=== PATIENT | female | born 1995 | race African-American/Black ===

== ENCOUNTER 2016-09-16 20:40 | Emergency (ER) | payer MEDICAID ==
[~2016-09-16] VITALS: Ht 172.7 cm; Wt 82.0 kg
[~2016-09-16 20:40] MED LIST: PROM25TA5 PO; birth control pill PO
[2016-09-16 20:44] VITALS: BP 121/75; PULSE 92; RESP 18; TEMP 98; O2SAT 98
[2016-09-16] MEDS ORDERED: SODIUM CHLOR 0.9% 1000 ML INJ 1,000 ML IV ONE (20:56)
--- NOTE | 2016-09-16 21:11 | PD ---
HPI Chief Complaint: Related Problem Time Seen by Provider: 20:54 Travel History International Travel<30 days: No Contact w/Intl Traveler<30days: No Traveled to known affect area: No History of Present Illness HPI The patient is a 21 year old female with one term vaginal delivery and one spontaneous miscarriage at 13 weeks gestation currently who presents to the [facility] emergency department with a history of right-sided abdominal pain and nausea and vomiting that began yesterday. She reports that she's had vomiting too many times to count yesterday. She reports that today she's had 4 episodes of vomiting. She denies having any diarrhea. Her last bowel movement was last night. She denies having any blood in her stool or black or tarry stools. She reports that she's had urinary urgency today and difficulty urinating. She denies having any pain with urination or frequency. 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 She reports that she was told that there is fluid on the baby's head or heart and she has been referred to [place] for specialty evaluation. The patient denies any recent fevers, cough, congestion, neck pain, chest pain, shortness of breath, diarrhea, or neurologic symptoms. LMP: May 2016 [facility] Past Medical History Narrative Medical The patient's past medical history is significant for none. Medical History: Denies Significant Hx Developmental Delay: No Diminished Hearing: No Headaches: No Immunizations Current: Yes ?: LMP: 05/2016 : 3 Para: 1 Miscarriage: 1 Past Surgical History Narrative Surgical The patient's past surgical history is reportedly none. Surgical History: No Previous Surgery Social History Alcohol Use: Yes (ocass.) Tobacco Use: No Substance Use: No Allergies-Medications (Allergen,Severity, Reaction): Coded Allergies: Amoxicillin (Verified Allergy, Severe, HIVES, 09/16/16) Penicillin (Verified Allergy, Severe, HIVES, 09/16/16) Reported Meds & Prescriptions Reported Meds & Active Scripts Active Zofran Odt (Ondansetron Odt) 4 Mg Tab 4 Mg SL Q6HR PRN Phenergan (Promethazine HCl) 25 Mg Tab 25 Mg PO Q6H PRN Reported [ control pill] 1 Tab PO HS Review of Systems Except as stated in HPI: all other systems reviewed are Neg General / Constitutional: No: Fever Eyes: No: Visual changes HENT: No: Headaches Cardiovascular: No: Chest Pain or Discomfort Respiratory: No: Shortness of Breath Gastrointestinal: Positive: Nausea, Vomiting, Abdominal Pain, No: Changes in Bowel Habits, Indigestion, Loss of Appetite Genitourinary: Positive: Urgency, Hesitancy, No: Dysuria Musculoskeletal: No: Pain Skin: No Rash Neurologic: No: Weakness Psychiatric: No: Depression Endocrine: No: Polydipsia Hematologic/Lymphatic: No: Easy Bruising Physical Exam Narrative General: The patient is a well-developed well-nourished female, tearful on examination, flat affect. Head and Neck exam: Head is normocephalic atraumatic. Eyes: EOMI, pupils are equal round and reactive to light. Nose: Midline septum with pink mucous membranes Mouth: Dentition unremarkable. Moist mucus membranes. Posterior oropharynx is not erythematous. No tonsillar hypertrophy. Uvula midline. Airway patent. Neck: No palpable lymphadenopathy. No nuchal rigidity. No thyromegaly. Cardiovascular: Regular rate and rhythm without murmurs, gallops, or rubs. Lungs: Clear to auscultation bilaterally. No wheezes, rhonchi, or rales. Abdomen: Soft, with tenderness on palpation along the right lateral mid section of the abdomen, no tenderness specifically over McBurney's point. No guarding, rebound , or rigidity. Negative Ruthven sign. Normal bowel sounds are audible. Extremities: No clubbing, cyanosis, or edema. 2+ pulses in all 4 extremities. No calf tenderness on palpation. Back: No spinous process tenderness to palpation. No costovertebral angle tenderness to palpation. Neurologic Exam: Grossly nonfocal. Skin Exam: No rash noted. Intact skin that is warm and dry. Gynecologic exam: The patient was placed in the dorsal lithotomy position. Her external genitalia were examined. She had no evidence of rash or lesions. The speculum was placed into her vagina and the cervix was identified. She had a yellow discharge noted. Cervix was noted to be friable. On Bimanual exam: she has no cervical motion tenderness. No adnexal tenderness or prominence noted on palpation. No uterine tenderness, however enlargement consistent with early is noted to palpation. Data Data Last Documented VS Vital Signs Date Time Temp Pulse Resp B/P Pulse Ox O2 Delivery O2 Flow Rate FiO2 09/16/16 23:57 90 16 128/78 100 09/16/16 20:44 98.0 Orders Beta Hcg (Quant/Titer) (09/16/16 20:56) Complete Blood Count With Diff (09/16/16 20:56) Comprehensive Metabolic Panel (09/16/16 20:56) Gc And Chlamydia Pcr (09/16/16 20:56) Complete Rh (09/16/16 20:56) Wet Prep Profile (09/16/16 20:56) Urinalysis - C+S If Indicated (09/16/16 20:56) Iv Access Insert/Monitor (09/16/16 20:56) Ecg Monitoring (09/16/16 20:56) Sodium Chlor 0.9% 1000 Ml Inj (Ns 1000 M (09/16/16 20:56) Ondansetron Inj (Zofran Inj) (09/16/16 21:30) Ed Poc Ultrasound (09/16/16 ) Ceftriaxone Inj (Rocephin Inj) (09/16/16 21:45) Azithromycin Powd Pack (Zithromax Powd P (09/16/16 21:45) Ceftriaxone Inj (Rocephin Inj) (09/16/16 22:03) Labs Laboratory Tests Test 09/16/16 09/16/16 09/16/16 21:10 21:20 22:30 White Blood Count 10.8 TH/MM3 Red Blood Count 4.85 MIL/MM3 Hemoglobin 12.2 GM/DL Hematocrit 35.3 % Mean Corpuscular Volume 72.8 FL Mean Corpuscular Hemoglobin 25.2 PG Mean Corpuscular Hemoglobin 34.7 % Concent Red Cell Distribution Width 16.8 % Platelet Count 336 TH/MM3 Mean Platelet Volume 8.0 FL Neutrophils (%) (Auto) 56.4 % Lymphocytes (%) (Auto) 33.0 % Monocytes (%) (Auto) 8.8 % Eosinophils (%) (Auto) 1.2 % Basophils (%) (Auto) 0.6 % Neutrophils # (Auto) 6.1 TH/MM3 Lymphocytes # (Auto) 3.5 TH/MM3 Monocytes # (Auto) 0.9 TH/MM3 Eosinophils # (Auto) 0.1 TH/MM3 Basophils # (Auto) 0.1 TH/MM3 CBC Comment DIFF FINAL Differential Comment Sodium Level 136 MEQ/L Potassium Level 3.7 MEQ/L Chloride Level 105 MEQ/L Carbon Dioxide Level 22.9 MEQ/L Anion Gap 8 MEQ/L Blood Urea Nitrogen 5 MG/DL Creatinine 0.64 MG/DL Estimat Glomerular Filtration 142 ML/MIN Rate Random Glucose 92 MG/DL Calcium Level 8.5 MG/DL Total Bilirubin 0.2 MG/DL Aspartate Amino Transf 11 U/L (AST/SGOT) Alanine Aminotransferase 8 U/L (ALT/SGPT) Alkaline Phosphatase 68 U/L Total Protein 7.3 GM/DL Albumin 2.9 GM/DL Human Chorionic Gonadotropin, [address] MIU/ML Quant Blood Type O POSITIVE Rho(D) Type POSITIVE Clue Cells (Wet Prep) NONE SEEN Vaginal Trichomonas (Wet Prep) NONE SEEN Vaginal Yeast (Wet Prep) NONE SEEN Chlamydia trachomatis DNA DETECTED (PCR) Neisseria gonorrhoeae DNA NOT DETECTED (PCR) Urine Color LIGHT-YELLOW Urine Turbidity CLEAR Urine pH 6.0 Urine Specific Mikana 1.008 Urine Protein NEG mg/dL Urine Glucose (UA) NEG mg/dL Urine Ketones NEG mg/dL Urine Occult Blood NEG Urine Nitrite NEG Urine Bilirubin NEG Urine Urobilinogen LESS THAN 2.0 MG/DL Urine Leukocyte Esterase MOD Urine RBC LESS THAN 1 /hpf Urine WBC LESS THAN 1 /hpf Urine Squamous Epithelial 1 /hpf Cells Urine Renal Epithelial Cells <1 /hpf Urine Mucus FEW /lpf Microscopic Urinalysis Comment CULT NOT INDICATED MDM Medical Decision Making Medical Screen Exam Complete: Yes Emergency Medical Condition: Yes Medical Record Reviewed: Yes Interpretation(s) Laboratory Tests Test 09/16/16 09/16/16 09/16/16 21:10 21:20 22:30 White Blood Count 10.8 TH/MM3 Red Blood Count 4.85 MIL/MM3 Hemoglobin 12.2 GM/DL Hematocrit 35.3 % Mean Corpuscular Volume 72.8 FL Mean Corpuscular Hemoglobin 25.2 PG Mean Corpuscular Hemoglobin 34.7 % Concent Red Cell Distribution Width 16.8 % Platelet Count 336 TH/MM3 Mean Platelet Volume 8.0 FL Neutrophils (%) (Auto) 56.4 % Lymphocytes (%) (Auto) 33.0 % Monocytes (%) (Auto) 8.8 % Eosinophils (%) (Auto) 1.2 % Basophils (%) (Auto) 0.6 % Neutrophils # (Auto) 6.1 TH/MM3 Lymphocytes # (Auto) 3.5 TH/MM3 Monocytes # (Auto) 0.9 TH/MM3 Eosinophils # (Auto) 0.1 TH/MM3 Basophils # (Auto) 0.1 TH/MM3 CBC Comment DIFF FINAL Differential Comment Sodium Level 136 MEQ/L Potassium Level 3.7 MEQ/L Chloride Level 105 MEQ/L Carbon Dioxide Level 22.9 MEQ/L Anion Gap 8 MEQ/L Blood Urea Nitrogen 5 MG/DL Creatinine 0.64 MG/DL Estimat Glomerular Filtration 142 ML/MIN Rate Random Glucose 92 MG/DL Calcium Level 8.5 MG/DL Total Bilirubin 0.2 MG/DL Aspartate Amino Transf 11 U/L (AST/SGOT) Alanine Aminotransferase 8 U/L (ALT/SGPT) Alkaline Phosphatase 68 U/L Total Protein 7.3 GM/DL Albumin 2.9 GM/DL Human Chorionic Gonadotropin, 695[address] MIU/ML Quant Blood Type O POSITIVE Rho(D) Type POSITIVE Clue Cells (Wet Prep) NONE SEEN Vaginal Trichomonas (Wet Prep) NONE SEEN Vaginal Yeast (Wet Prep) NONE SEEN Chlamydia trachomatis DNA DETECTED (PCR) Neisseria gonorrhoeae DNA NOT DETECTED (PCR) Urine Color LIGHT-YELLOW Urine Turbidity CLEAR Urine pH 6.0 Urine Specific Mikana 1.008 Urine Protein NEG mg/dL Urine Glucose (UA) NEG mg/dL Urine Ketones NEG mg/dL Urine Occult Blood NEG Urine Nitrite NEG Urine Bilirubin NEG Urine Urobilinogen LESS THAN 2.0 MG/DL Urine Leukocyte Esterase MOD Urine RBC LESS THAN 1 /hpf Urine WBC LESS THAN 1 /hpf Urine Squamous Epithelial 1 /hpf Cells Urine Renal Epithelial Cells <1 /hpf Urine Mucus FEW /lpf Microscopic Urinalysis Comment CULT NOT INDICATED Differential Diagnosis Threatened miscarriage, versus pyelonephritis, versus kidney stone, versus round ligament pain, versus appendicitis Narrative Course During the course of the patients emergency department visit, the patients history, examination, and differential diagnosis were reviewed with the patient. The patient had IV access obtained and blood work sent for analysis. The patient was placed on a equipment monitor phototypesetting with oximetry and blood pressure monitoring. A pelvic examination will be done. A bedside ultrasound will be done by me. The patient was provided normal saline 1 L IV fluid bolus, Zofran 4 mg IV. A bedside ultrasound was done by me and confirmed heart activity. The patient was noted on pelvic examination to have cervicitis and was given Rocephin 250 IV, Zithromax 1 g by mouth. A wet prep and culture were sent. The patients laboratory studies were reviewed and remarkable for a white count of 10.8, hemoglobin 12.2, platelets 336 with 8.8 monocytes, CMP is remarkable for a BUN of 5, AST 11, ALT 8, albumin 2.9, on a dictated beta hCG is 76,789, urinalysis is unremarkable, wet prep is negative, blood type is O+. The patient's results were discussed with her, her questions were answered. The patient was instructed to take Tylenol as needed for discomfort. She reports that she does have an appointment scheduled with a specialist on Saturday and regarding her . The patient was instructed regarding the importance of follow-up. The patient was given a prescription for nausea medication. The patient was instructed regarding the importance of staying well hydrated by pushing fluids with an electrolyte rich solution such as Pedialyte or Gatorade. The patient is resting comfortably and feels better, is alert and in no distress. The patients results and examination findings were discussed with the patient. The repeat examination is unremarkable and benign. The history, exam, diagnostic testing, and current condition do not suggest any significant pathology to warrant further testing, continued ED treatment, admission, or surgical evaluation at this point. The vital signs have been stable. The patient does not have uncontrollable pain, intractable vomiting, or other significant symptoms. The patient's condition is stable and appropriate for discharge. The patient will pursue further outpatient evaluation with a primary care physician or other designated or consulting physician as indicated in the discharge instructions. The patient expressed understanding and was agreeable with this plan. Procedures Procedure Narrative Emergency Department Pelvic ultrasound was performed with patient consent. The curvilinear probe was used in the transverse and sagittal views within the suprapubic region revealing single intrauterine . heart rate was 169. Diagnosis Primary Impression: Cervicitis Additional Impression: Qualified Code: Z3A.13 - 13 weeks gestation of Referrals: [employer] 2 days Patient Instructions: Acute Nausea and Vomiting (ED), Cervicitis (ED), General Instructions Med/Other Pt SpecificInfo: Prescription(s) given Scripts Ondansetron Odt (Zofran Odt)4 Mg Tab4 Mg SL Q6HR PRN (Nausea/Vomiting) #7 TAB Ref 0 Prov:Rosy Lucero MD 09/16/16 Disposition: 01 DISCHARGE HOME Condition: Stable Rosy Lucero MD Sep 16, 2016 21:11
[2016-09-16 21:21] LABS: AUTOMATED NEUTROPHIL # 6.1 TH/MM3 (1.8-7.7); BASOPHIL # 0.1 TH/MM3 (0-0.2); BASOPHIL % 0.6 % (0.0-2.0); EOSINOPHIL # 0.1 TH/MM3 (0-0.4); EOSINOPHIL % 1.2 % (0.0-4.0); HEMATOCRIT 35.3 % (35.0-46.0); HEMO FLAGS DIFF FINAL; LYMPHOCYTE # 3.5 TH/MM3 (1.0-4.8); MEAN CELL VOLUME 72.8 FL (80.0-100.0); MEAN CORPUSCULAR HEMOGLOBIN 25.2 PG (27.0-34.0); MEAN CORPUSCULAR HGB CONC 34.7 % (32.0-36.0); MONO % 8.8 % (0.0-8.0); NEUT % 56.4 % (16.0-70.0); PLATELET COUNT 336 TH/MM3 (150-450); RED BLOOD COUNT 4.85 MIL/MM3 (4.00-5.30); RED CELL DISTRIBUTION WIDTH 16.8 % (11.6-17.2); WHITE BLOOD COUNT 10.8 TH/MM3 (4.0-11.0)
[2016-09-16] MEDS ORDERED: ONDANSETRON HCL 4 MG/2 ML VIAL IV ONE (21:30)
[2016-09-16 21:43] LABS: ANION GAP 8 MEQ/L (5-15); AST (GOT) 11 U/L (15-37); BICARBONATE 22.9 MEQ/L (21.0-32.0); BLOOD UREA NITROGEN 5 MG/DL (7-18); CHLORIDE 105 MEQ/L (98-107); GLOMERULAR FILTRATION RATE 142 ML/MIN (>89); POTASSIUM 3.7 MEQ/L (3.5-5.1); SODIUM (NA) 136 MEQ/L (136-145)
[2016-09-16] MEDS ORDERED: AZITHROMYCIN PWD FOR SUSP 1 GM PACKET PO ONE (21:45)
[2016-09-16] MEDS ORDERED: cefTRIAXone INJ 250 MG in SODIUM CHLORIDE 0.9% INJ 25 ML IV ONE (21:45)
[2016-09-16 22:00] LABS: ALKALINE PHOSPHATASE 68 U/L (45-117); ALT (GPT) 8 U/L (10-53); BETA HCG QUANT 76789 MIU/ML (0-5); TOTAL BILIRUBIN ADULT 0.2 MG/DL (0.2-1.0)
[2016-09-16] MEDS ORDERED: cefTRIAXone INJ 250 MG in SODIUM CHLORIDE 0.9% INJ 100 ML IV ONE (22:03)
[2016-09-16 23:08] LABS: BLOOD, URINE NEG (NEG); GLUCOSE,URINE NEG (NEG); KETONE, URINE NEG (NEG); MUCUS URINE FEW /lpf (OCC); NITRITE,URINE NEG (NEG); RENAL EPITHELIAL CELLS <1 /hpf; SQUAMOUS EPITHELIAL CELL URINE 1 /hpf (0-5); URINE COLOR LIGHT-YELLOW (YELLW/STRAW)
[2016-09-16 23:11] LABS: COMMENT (UR) CULT NOT INDICATED; CULTURE IF INDICATED CULT NOT INDICATED
[2016-09-16] MEDS ORDERED: ZOFR4TAB3 SL (23:48)
[2016-09-16 23:57] VITALS: BP 128/78
[2016-09-17 00:43] LABS: CHLAMYDIA PCR DETECTED (NOT DETECT); NEISSERIA PCR NOT DETECTED (NOT DETECT)
== END 2016-09-17 | disposition home or self-care (01) ==
LOC: NEPE 20:40
DX: O26.91 Pregnancy related conditions, unspecified, first trimester (principal); N72 Inflammatory disease of cervix uteri; R39.15 Urgency of urination; R30.0 Dysuria; Z3A.13 13 weeks gestation of pregnancy
CPT/HCPCS: 80053; 81001; 84702; 85025; 86901; 87210; 87491; 87591; 96361; 96365; 96375; 99284; J0696; J2405; J7030

== ENCOUNTER → 2016-10-16 | Outpatient (CLI) | payer MEDICAID ==
[~2016-10-16] MED LIST changes: +ZOFR4TAB3 SL
== END ==
LOC: HPND 08:33
PROVIDERS: ATTEND Obstetrics & Gynecology
DX: O36.22X0 Maternal care for hydrops fetalis, second trimester, not applicable or unspecified (principal); O35.8XX0 Maternal care for other (suspected) fetal abnormality and damage, not applicable or unspecified
CPT/HCPCS: 76815

== ENCOUNTER 2016-10-29 01:07 | Emergency (ER) | payer MEDICAID ==
[~2016-10-29] VITALS: Ht 172.7 cm; Wt 82.0 kg
[2016-10-29 01:09] VITALS: BP 134/77; PULSE 82; RESP 18; TEMP 98.3; O2SAT 100
== END 2016-10-29 01:40 | disposition left against medical advice (07) ==
LOC: NED 01:07
DX: R51 Headache (principal)
CPT/HCPCS: 99281

== ENCOUNTER 2017-06-20 12:14 | Emergency (ER) | payer MEDICAID ==
[2017-06-20 12:35] VITALS: PULSE 102
[2017-06-20 12:40] VITALS: PULSE 150; PULSE 93
[2017-06-20] MEDS ORDERED: LACTATED RINGER'S 1000 ML INJ 1,000 ML IV SCH (12:49)
--- NOTE | 2017-06-20 13:03 | PD ---
HPI Chief Complaint Dizziness pelvic pain Date Seen: Jun 20, 2017 Time Seen: 12:55 Travel History International Travel<30 Days: No Contact w/Intl Traveler<30Days: No Known Affected Area: No History of Present Illness HPI 21-year-old white female A1 at 29 weeks presents complaining of dizziness for a day and pelvic discomfort pains denies bleeding or leakage of fluid. Patient sees Dr. Ayoub in [facility] unregistered to our system. The heart rate tracing is reactive she is not rosemary at this time Weeks Gestation: 29 Para: 1 : 3 History Past Medical History Narrative Medical Positive sickle cell trait Obstetric History Obstetric History Patient's had one vaginal delivery in the past was normal at term, last baby had multiple anomalies the terminated at 18-20 weeks Social History Alcohol Use: No Tobacco Use: No Substance Abuse: No Allergies-Medications (Allergen,Severity, Reaction): Coded Allergies: amoxicillin (Unverified Allergy, Severe, HIVES, 03/12/17) penicillin G (Unverified Allergy, Severe, HIVES, 03/12/17) Home Meds Active Scripts Ondansetron Odt (Zofran Odt) 4 Mg Tab, 4 MG SL Q6HR Y for Nausea/Vomiting, #7 TAB 0 Refills Prov:Rosy Lucero MD 09/16/16 Promethazine (Phenergan) 25 Mg Tab, 25 MG PO Q6H Y for Nausea/Vomiting, #20 TAB 0 Refills Prov:Alexei Crowe MD 07/28/16 Reported Medications [ control pill] No Conflict Check, 1 TAB PO HS 06/14/16 Review of Systems General / Constitutional: No: Fever, Weight Gain, Chills, Other Eyes: No: Diploplia, Blurred Vision, Visual changes, Pain, Photophobia HENT: Lightheadedness, No: Headaches, Vertigo Cardiovascular: No: Irregular Rhythm, Chest Pain or Discomfort, Palpitations, Tachycardia, Syncope, Varicosities, Edema, Cyanosis Respiratory: No: Cough, Short of Breath, Other Gastrointestinal: No: Nausea, Vomiting, Diarrhea Genitourinary: No: Decreased Urinary Output, Oliguria Musculoskeletal: No: Limited ROM, Weakness, Cramping, Edema, Pain Skin: No Rash, No Itching, No Dryness, No Lumps, No Change in Pigmentation, No Change in Nails, No Alopecia, No Lesions Neurologic: Weakness, Dizziness, No: Syncope, Focal Abnormalities, Coordination Problem, Headache, Slurred Speech, Seizures Psychiatric: No: Depression, Suicidal Ideations, Homicidal Ideation Endocrine: No: Heat Intolerance, Cold Intolerance, Polydipsia, Polyuria, Other Physical Exam Narrative GENERAL: Well-nourished, well-developed patient. SKIN: Warm and dry. HEAD: Normocephalic and atraumatic. EYES: No scleral icterus. No injection or drainage. ENT: No nasal drainage noted. Mucous membranes pink. Airway patent. NECK: Supple, trachea midline. No JVD. CARDIOVASCULAR: Regular rate and rhythm without murmurs, gallops, or rubs. RESPIRATORY: Breath sounds equal bilaterally. No accessory muscle use. BREASTS: Bilateral exam showed no masses , no retractions, no nipple discharge. ABDOMEN/GI: Abdomen soft, non-tender, bowel sounds present, no rebound, no guarding Gravid to [29-] weeks size Fundal Height: [29-] GENITOURINARY: External Genitalia: intact and normal in appearance BUS glands: [-] Cervix: [-Post.] Dilatation: [-Closed] Effacement: [-] Thick Station: [-3] Membranes: [intact ] Uterine Contractions: [-none] FHT's: Category: [1-] Baseline: [-133] Reactive: [-yes] Variability: [mod-] Decels: [0-] EXTREMITIES: No cyanosis or edema. BACK: Nontender without obvious deformity. No CVA tenderness. NEUROLOGICAL: Awake and alert. Motor and sensory grossly within normal limits. Five out of 5 muscle strength in all muscle groups. Normal speech. Data Data Orders Orders Vital Signs (Adult) .ON ADMISSION (06/20/17 12:49) ^ Labor Status (06/20/17 12:49) Urinalysis - C+S If Indicated (06/20/17 12:49) Cbc No Diff, Includes Plts (06/20/17 12:49) Comprehensive Metabolic Panel (06/20/17 12:49) Lactated Ringer's 1000 Ml Inj (Lr 1000 M (06/20/17 12:49) Ob/Psych Drug Screen, Urine (06/20/17 12:49) Labs Urine dip on OB ED is negative MDM Interpretation(s) Patient is a 21-year-old black female at 29 weeks A1 who presents planning of dizziness lightheadedness weakness for the last couple days, denies bleeding or leakage of fluid, however she does have pelvic pain and discomfort, her cervix is closed thick and high, she is not rosemary, heart rate tracing is reactive for 29 weeks. Urine dip on OB ED is negative, CBC CMP within normal limits, drug screen negative, urinalysis negative Plan The patient received 1 L of IV fluid for hydration, the patient for 1 hour at least, after the hydration fluids patient did feel better she had less dizziness less discomfort. He was not rosemary at that time the baby was a reactive on the monitor, plan to discharge patient home today to bedrest, by mouth fluids, Tylenol as needed day, and heating pad or hot bath. She is to follow-up with her OB provider Diagnosis Diagnosis: Primary Impression: 29 weeks gestation of Additional Impressions: Dizziness Pelvic pain affecting in third trimester, antepartum Disposition: 01 DISCHARGE HOME Condition: Stable Tommy Boss II, MD Jun 20, 2017 13:03
[2017-06-20 13:34] LABS: HEMATOCRIT 31.3 % (35.0-46.0); MEAN CORPUSCULAR HEMOGLOBIN 24.3 PG (27.0-34.0); MEAN CORPUSCULAR HGB CONC 33.3 % (32.0-36.0); PLATELET COUNT 255 TH/MM3 (150-450); RED BLOOD COUNT 4.28 MIL/MM3 (4.00-5.30); RED CELL DISTRIBUTION WIDTH 16.8 % (11.6-17.2); REVIEW FLAG FINAL; WHITE BLOOD COUNT 12.6 TH/MM3 (4.0-11.0)
[2017-06-20 13:38] LABS: BACTERIA, URINE RARE /hpf; BLOOD, URINE NEG (NEG); GLUCOSE,URINE NEG (NEG); KETONE, URINE NEG (NEG); NITRITE,URINE NEG (NEG); SQUAMOUS EPITHELIAL CELL URINE 1 /hpf (0-5); URINE COLOR LIGHT-YELLOW (YELLW/STRAW)
[2017-06-20 13:42] LABS: COMMENT (UR) CULT NOT INDICATED; CULTURE IF INDICATED CULT NOT INDICATED
[2017-06-20 14:01] LABS: ALKALINE PHOSPHATASE 83 U/L (45-117); TOTAL BILIRUBIN ADULT 0.2 MG/DL (0.2-1.0)
[2017-06-20 14:03] LABS: ALT (GPT) 10 U/L (10-53); ANION GAP 8 MEQ/L (5-15); AST (GOT) 17 U/L (15-37); BICARBONATE 23.4 MEQ/L (21.0-32.0); BLOOD UREA NITROGEN 8 MG/DL (7-18); CHLORIDE 107 MEQ/L (98-107); GLOMERULAR FILTRATION RATE 198 ML/MIN (>89); SODIUM (NA) 138 MEQ/L (136-145)
[2017-06-25 14:47] LABS: HEROIN (6-ACETYLMORPHINE) UR NEG (NEG); OBMETHADONE UR NEG (NEG); PHENCYCLIDINE URINE NEG (NEG)
[2017-06-25 14:48] LABS: BATH SALTS (MDPV) UR NEG (NEG); ECSTASY (MDMA) UR NEG (NEG); K2 SPICE UR NEG (NEG); OBGABAPENTIN UR NEG (NEG); OBHYDROMORPHONE U NEG (NEG)
== END 2017-06-20 14:30 | disposition home or self-care (01) ==
LOC: HOBED 12:14
DX: O26.893 Other specified pregnancy related conditions, third trimester (principal); R10.2 Pelvic and perineal pain; R42 Dizziness and giddiness; R53.1 Weakness; D57.3 Sickle-cell trait; Z79.899 Other long term (current) drug therapy; Z3A.29 29 weeks gestation of pregnancy; Z88.0 Allergy status to penicillin
CPT/HCPCS: 80053; 80307; 81001; 85027; 96360; 99284; G0481; J7120

== ENCOUNTER 2018-04-12 15:03 | Observation (INO) ==
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
[2018-04-12] MEDS ORDERED: Sod Chloride 0.9% Inj 1,000 ML IV.CONT SCH (17:00)
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
[2018-04-12 17:30] LABS: Baso % (Auto) 0.4 % (0.0-2.0); Eos # (Auto) 0.1 th/mm3 (0.0-0.4); Eos % (Auto) 1.8 % (0.0-4.0); Hematocrit 33.6 % (35.0-46.0); Hemoglobin 11.1 gm/dL (11.6-15.3); Mean Corpuscular HGB Conc 33.2 % (32.0-36.0); Mean Corpuscular Hemoglobin 23.1 pg (27.0-34.0); Mean Corpuscular Volume 69.6 fL (80.0-100.0); Mean Platelet Volume 8.1 fL (7.0-11.0); Mono % (Auto) 13.8 % (0.0-8.0); Neut # (Auto) 4.1 th/mm3 (1.8-7.7); Platelet Count 298 th/mm3 (150-450); Red Blood Count 4.83 mil/mm3 (4.00-5.30); Red Cell Distribution Width 19.5 % (11.6-17.2); White Blood Count 7.3 th/mm3 (4.0-11.0)
[2018-04-12 17:41] LABS: Activated Partial Thrombo Time 27.9 sec (24.3-30.1); Prothrombin Time 10.6 sec (9.8-11.6)
[2018-04-12 17:53] LABS: Anion Gap 8 meq/L (5-15); Blood Urea Nitrogen 12 mg/dL (7-18); Calcium 8.5 mg/dL (8.5-10.1); Chloride 108 meq/L (98-107); Glomerular Filtration Rate Greater Than 89 mL/min (>89); Glucose,Random 91 mg/dL (74-106); Potassium 3.6 meq/L (3.5-5.1); Sodium 141 meq/L (136-145)
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
[2018-04-12] MEDS ORDERED: Bisacodyl 10 MG Supp RECTAL PRN (20:27)
[2018-04-12] MEDS ORDERED: Acetaminophen 325 MG Tablet PO PRN (20:27)
[2018-04-12] MEDS: Sod Chloride 0.9% Inj 1,000 ML IV.CONT SCH (20:53)
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
[2018-04-12] MEDS: Senna/Docusate Sodium 8.6/50 MG Tablet PO SCH (21:51)
[2018-04-13] MEDS: Sod Chloride 0.9% Inj 1,000 ML IV.CONT SCH ×2 (06:21→17:17)
[2018-04-13 06:52] LABS: Baso % (Auto) 0.3 % (0.0-2.0); Eos # (Auto) 0.2 th/mm3 (0.0-0.4); Eos % (Auto) 3.2 % (0.0-4.0); Hematocrit 34.3 % (35.0-46.0); Hemoglobin 11.2 gm/dL (11.6-15.3); Lymph # (Auto) 2.6 th/mm3 (1.0-4.8); Lymph % (Auto) 46.6 % (9.0-44.0); Mean Corpuscular HGB Conc 32.7 % (32.0-36.0); Mean Corpuscular Hemoglobin 22.9 pg (27.0-34.0); Mean Corpuscular Volume 70.2 fL (80.0-100.0); Mean Platelet Volume 8.3 fL (7.0-11.0); Mono # (Auto) 0.8 th/mm3 (0.0-0.9); Mono % (Auto) 13.8 % (0.0-8.0); Neut % (Auto) 36.1 % (16.0-70.0); Platelet Count 317 th/mm3 (150-450); Red Blood Count 4.88 mil/mm3 (4.00-5.30); Red Cell Distribution Width 20.2 % (11.6-17.2); White Blood Count 5.6 th/mm3 (4.0-11.0)
[2018-04-13 07:17] LABS: Albumin 2.8 g/dL (3.4-5.0); Anion Gap 7 meq/L (5-15); Aspartate Aminotransferase 13 U/L (15-37); Blood Urea Nitrogen 11 mg/dL (7-18); Calcium 8.3 mg/dL (8.5-10.1); Carbon Dioxide 22.8 meq/L (21.0-32.0); Chloride 112 meq/L (98-107); Glomerular Filtration Rate Greater Than 89 mL/min (>89); Glucose,Random 83 mg/dL (74-106); Potassium 3.9 meq/L (3.5-5.1); Sodium 142 meq/L (136-145)
[2018-04-13 07:23] LABS: Alanine Aminotransferase 10 U/L (10-53); Alkaline Phosphatase 94 U/L (45-117); Total Protein 7.6 g/dL (6.4-8.2)
[2018-04-13 07:31] LABS: Bacteria,Urine Occasional /hpf; Bilirubin,Urine Negative (Negative); Clarity,Urine Hazy (Clear); Color,Urine Yellow (Yellw/Straw); Glucose,Urine (UA) Negative (Negative); Leukocyte Esterase,Urine Negative (Negative); Mucus,Urine Few /lpf (Occasional); Nitrite,Urine Negative (Negative); Specific Gravity,Urine 1.059 (1.002-1.035); Squamous Epithelial Cell,Urine 6 /hpf (0-5)
[2018-04-13 07:33] LABS: Amphetamine Screen,Urine Neg (Neg); Barbiturate Screen,Urine Neg (Neg); Cannabinoid Screen,Urine Neg (Neg); Cocaine Screen,Urine Neg (Neg)
[2018-04-13 07:42] LABS: Opiate Screen,Urine Pos (Neg)
--- NOTE | 2018-04-13 12:05 | CT ---
EXAM DATE: 04/13/2018 11:59 AM EDT AGE/SEX: 22 years / Female INDICATIONS: Altered mental status. CLINICAL DATA: This is the patient's initial encounter. Patient reports that signs and symptoms have been present for 1 day and indicates a pain score of 0/10. MEDICAL/SURGICAL HISTORY: None. None. RADIATION DOSE: 56.35 CTDI (mGy) COMPARISON: [facility] [place], CT HEAD W/O CONTRAST, 04/12/2018. . TECHNIQUE: CT of the head without contrast. Using automated exposure control and adjustment of the mA and/or kV according to patient size, radiation dose was kept as low as reasonably achievable to ob tain optimal diagnostic quality images. DICOM format image data is available electronically for revi ew and comparison. FINDINGS: Cerebrum: The ventricles are normal for age. No evidence of midline shift, mass lesion, hemorrhage or acute infarction. No extraaxial fluid collections are seen. Posterior Fossa: The cerebellum and brainstem are intact. The 4th ventricle is midline. The cerebe llopontine angle is unremarkable. Extracranial: The visualized portion of the orbits is intact. Skull: The calvaria is intact. No evidence of skull fracture. CONCLUSION: 1. Negative CT Head non contrast. . Electronically signed by: Bernardino Banda MD 04/13/2018 12:04 PM EDT
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
[2018-04-13] MEDS: Senna/Docusate Sodium 8.6/50 MG Tablet PO SCH ×2 (15:56→20:23)
[2018-04-13] MEDS ORDERED: oxyCODONE/Acetaminophen 10/325 Tablet PO ONE (22:28)
[2018-04-14] MEDS: Sod Chloride 0.9% Inj 1,000 ML IV.CONT SCH ×2 (03:35→17:13)
[2018-04-14 04:36] VITALS: O2SAT 100
[2018-04-14] MEDS: Senna/Docusate Sodium 8.6/50 MG Tablet PO SCH (10:13)
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
[2018-04-14 11:11] VITALS: BP 110/68; PULSE 76; RESP 16; TEMP 98.7
--- NOTE | 2018-04-14 11:38 | P.PNNEU ---
Subjective Subjective Comments: eeg abn spike on left start teri peñaloza too tired on if mri neg can dc Active Medications: Active Medications Acetaminophen (Tylenol) 650 mg PO Q4H PRN PRN Reason: Temp > 100.4 Last Admin: 04/13/18 18:49 Dose: 650 mg Al Hydroxide/Mg Hydroxide (Milk Of Magnesia Liq) 30 ml PO Q12H PRN PRN Reason: Mild Constipation Bisacodyl (Dulcolax Supp) 10 mg RECTAL DAILY PRN PRN Reason: SEVERE CONSITIPATION Sodium Chloride (Ns Inj) 1,000 mls @ 100 mls/hr IV.CONT .Q10H [facility] Last Admin: 04/14/18 03:35 Dose: 100 mls/hr Lactulose (Lactulose Liq) 30 ml PO DAILY PRN PRN Reason: SEVERE CONSITIPATION Ondansetron HCl (Zofran Inj) 4 mg IV.PUSH Q6H PRN PRN Reason: NAUSEA OR VOMITING Senna/Docusate Sodium (Yael-Colace) 1 tab PO BID [facility] Last Admin: 04/14/18 10:13 Dose: 1 tab Sennosides (Senokot) 17.2 mg PO Q12H PRN PRN Reason: Moderate Constipation Sodium Chloride (Ns Flush) 2 ml IV.FLUSH PRN PRN PRN Reason: FLUSH AFTER USING IV ACCESS Allergies/Adverse Reactions: Allergies Allergy/AdvReac Type Severity Reaction Status Date / Time amoxicillin Allergy Severe HIVES Verified 04/12/18 15:29 penicillin G Allergy Severe HIVES Verified 04/12/18 15:29 Physical Exam Vital signs: Vital Signs 04/13/18 16:00 04/13/18 19:07 04/13/18 23:06 Temperature 98.4 F 98.1 F 98.0 F Pulse Rate 76 90 82 Respiratory Rate 12 19 19 Blood Pressure 98/63 L 115/73 98/53 L Pulse Oximetry 97 98 97 04/14/18 04:00 04/14/18 07:13 04/14/18 11:09 Temperature 97.7 F 97.6 F 98.7 F Pulse Rate 80 67 76 Respiratory Rate 17 18 16 Blood Pressure 91/57 L 111/74 110/68 Pulse Oximetry 100 100 100 Intake & Output 09/16/18 09/17/18 09/17/18 18:59 06:59 18:59 Intake Total 1000 / 1000 1460 / 1460 40 / 40 Balance 1000 / 1000 1460 / 1460 40 / 40 Weight 72.575 kg Intake: IV 1000 / 1000 1000 / 1000 NS Inj 1,000 ML @ 100 mls/hr IV 1000 / 1000 1000 / 1000 .CONT .Q10H [facility] Rx#:[id number] Oral 460 / 460 40 / 40 Other: # Voids 2 2 0 # Urine Diapers 0
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
[2018-04-14] MEDS ORDERED: Lacosamide 100 MG Tablet PO SCH (12:00)
[2018-04-14] MEDS ORDERED: Gadobutrol PF 10 MMOL/10 ML Vial (for RAD) IV.SIG ONE (14:47)
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
--- NOTE | 2018-04-14 15:44 | MR ---
EXAM DATE: 04/14/2018 3:39 PM EDT AGE/SEX: 22 years / Female INDICATIONS: Seizures. CLINICAL DATA: This is the patient's initial encounter. Patient reports that signs and symptoms have been present for 2 days and indicates a pain score of 0/10. MEDICAL/SURGICAL HISTORY: None. . Retained placenta. [place] [facility] [place] [facility] [place]. . TECHNIQUE: Multiplanar, multisequence examination of the brain was performed without and with 8 ml Ga davist (gadobutrol) contrast as a single exam dose. FINDINGS: Cerebrum: The ventricles are normal for age. No evidence of midline shift, mass lesion, hemorrhage or acute infarction. No extraaxial fluid collections are seen. The pituitary gland and suprasellar cistern are normal in configuration. White Matter: No significant signal abnormalities are seen in the white matter. Posterior Fossa: The cerebellum and brainstem are intact. The 4th ventricle is midline. The cerebel lopontine angle is unremarkable. The cerebellar tonsils are normal in position. Diffusion Imaging: No focal areas of restricted diffusion are seen. No evidence of acute infarction . Extracranial: The visualized portions of the orbits and paranasal sinuses are unremarkable. Post Contrast: No abnormal areas of parenchymal or dural enhancement. No evidence of blood-brain ba rrier breakdown. CONCLUSION: 1. Negative MRI of the brain with and without contrast. Electronically signed by: Bret Mosquera MD 04/14/2018 3:42 PM EDT
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
== END 2018-04-14 16:58 | disposition home or self-care (01) ==
LOC: NEDA 15:03 → NEPD 15:03 → NEPGCP 21:34
PROVIDERS: ADMIT Hospitalist; ATTEND Hospitalist
DX: M25.531 Pain in right wrist; V89.2XXA Person injured in unspecified motor-vehicle accident, traffic, initial encounter; F17.210 Nicotine dependence, cigarettes, uncomplicated; R07.81 Pleurodynia; M54.2 Cervicalgia; S06.0X9A Concussion with loss of consciousness of unspecified duration, initial encounter; Y92.410 Unspecified street and highway as the place of occurrence of the external cause; G93.40 Encephalopathy, unspecified; G40.909 Epilepsy, unspecified, not intractable, without status epilepticus; Z88.0 Allergy status to penicillin